=== PATIENT | female | born 1940 | race African-American/Black ===

== ENCOUNTER 2016-03-16 13:14 | Emergency (ER) | payer BC, MEDICAID, OTHER ==
[~2016-03-16] VITALS: Ht 165.1 cm; Wt 90.7 kg
[~2016-03-16 13:14] MED LIST: ARICEPT10 MG ORAL; ASPIRIN81 MG ORAL; BP MEDICATION; GABAPENTIN800 MG ORAL; JANUVIA100 MG ORAL; LANOXIN125 MCG ORAL; NEXIUM40 MG ORAL; PLAVIX75 MG ORAL; SOLOSTAR INSULIN
[2016-03-16 14:00] VITALS: BP 121/75
--- NOTE | 2016-03-16 14:42 | Emergency Room Report ---
History of Present Illness General Chief Complaint: Multiple Trauma/Fall Source: Patient Present Illness HPI 75 yo F here for multiple complaints. Patient is unhappy with her current PMD/ clinic. States she was there earlier today, had "to wait 90 minutes" and then they sent me home. Patient states she fell, hit head 1 week ago - went to [facility] - had CT that was "normal". She was discharged after ?obs in ED overnight because it sounds like she is on Plavix. However she hasnt taken plavix in weeks because she ran out. She has run out of a number of medications including for BP, but cant remember names/doses. She is still c/o headache to front of forehead from fall. Taking tylenol at home with some improvement. She is also c/o swollen bilateral legs for "a long time." Denies history of CHF. Denies chest pain, SOB. Allergies: Coded Allergies: PENICILLIN G (Verified Allergy, Itching, 12/06/12) SULFA (SULFONAMIDE ANTIBIOTICS) (Verified Allergy, Itching, 12/06/12) gagging Patient History Past Medical History: HTN, CVA/TIA Past Surgical History: unable to obtain Pertinent Family History: unable to obtain Social History: Denies: alcohol use, drug use, smoking Immunizations: UTD Reviewed Nursing Documentation: PMH: Agreed, PSxH: Agreed Nursing Documentation-PMH Hx Cardiac Problems: Yes - glaucoma rheumatoid arthritis Hx Hypertension: Yes Hx Diabetes: Yes - neuropathy DVT Hx Cancer: No Hx Gastrointestinal Problems: Yes - gastritis Hx Neurological Problems: Yes - peripheral neuropathy Hx Cerebrovascular Accident: Yes - 2005; left sided weakness Review of Systems All Other Systems: negative except mentioned in HPI Physical Exam Vital Signs Date Time Temp Pulse Resp B/P Pulse Ox O2 Delivery O2 Flow Rate FiO2 03/16/16 13:40 98.2 80 16 121/72 95 Room Air Sp02 EP Interpretation: reviewed, normal General Appearance: normal inspection, well appearing, no apparent distress, alert, GCS 15, non-toxic Head: normocephalic, other - Chronic abrasion to forehead, no lac or active bleeding. No hematoma Eyes: bilateral eye EOMI, bilateral eye PERRL ENT: normal ENT inspection, hearing grossly normal, normal voice Neck: normal inspection, full range of motion, supple, no bony tend Respiratory: normal inspection, lungs clear, normal breath sounds, no respiratory distress, no retraction, no wheezing Cardiovascular #1: normal peripheral pulses, regular rate, rhythm, no edema Gastrointestinal: normal inspection, normal bowel sounds, non tender, soft, no guarding, no hernia Genitourinary: no CVA tenderness Musculoskeletal: normal inspection, back normal, normal range of motion, William' s Sign negative, other - non-pitting edema bilateral lower extremities Neurologic: normal inspection, alert, oriented x3, responsive, microsoft dynamics ax developer III-XII nml as tested, motor strength/tone normal, speech normal Psychiatric: normal inspection, judgement/insight normal, mood/affect normal Skin: normal inspection, normal color, no rash Medical Decision Making Diagnostic Impression: Primary Impression: Head contusion Qualified Codes: S00.03XS - Contusion of scalp, sequela Additional Impressions: Swelling of extremity, left Swelling of extremity, right Medication refill ER Course Head contusion [address] head was negative at outside hospital. Non compliant with Plavix anyway. VSS here. No focal neuro deficits Basic labs done. No JANELLE, no leuks. H&H stable. Likely lymphadema, chronic. No clinical or laboratory sign of peripheral heart failure. ECG is NSR, no ischemia Analgesia given for headache Patient took bus to ED. Is ambulating at baseline out of here. Has PMD appt tomorrow Given copy of labs Advised to ask for Neuro followup for continued headaches to eval for concussion EKG Diagnostic Results Rate: normal Rhythm: NSR ST Segments: no acute changes ASA given to the pt in ED: No Rhythm Strip Diag. Results EP Interpretation: yes Rate: 63 Rhythm: NSR, no PVC's, no ectopy Last Vital Signs Date Time Temp Pulse Resp B/P Pulse Ox O2 Delivery O2 Flow Rate FiO2 03/16/16 14:00 98.2 75 16 121/75 95 Room Air Status: improved Disposition: HOME, SELF-CARE Scripts Clopidogrel Bisulfate* (PLAVIX*) 75 Mg Tablet 75 MG ORAL DAILY for 30 Days, #30 TAB Prov: ISAAC MANRIQUEZ M.D. 03/16/16 ISAAC MANRIQUEZ M.D. Mar 16, 2016 14:42
[2016-03-16 14:57] LABS: BASOPHILS % (AUTO) 1.5 % (0.0-2.0); EOSINOPHILS % (AUTO) 1.6 % (0.0-3.0); LYMPHOCYTES % (AUTO) 37.4 % (20.0-45.0); MEAN CORPUSCULAR HEMOGLOBIN 29.2 PG (27.0-31.0); MEAN CORPUSCULAR HGB CONC 32.1 G/DL (32.0-36.0); MEAN CORPUSCULAR VOLUME 91 FL (80-99); MEAN PLATELET VOLUME 7.7 FL (6.5-10.1); MONOCYTES % (AUTO) 7.3 % (1.0-10.0); NEUTROPHILS % (AUTO) 52.2 % (45.0-75.0); PLATELET COUNT 156 K/UL (150-450); RED BLOOD COUNT 4.29 M/UL (4.20-5.40); RED CELL DISTRIBUTION WIDTH 13.6 % (11.6-14.8); WHITE BLOOD COUNT 5.8 K/UL (4.8-10.8)
[2016-03-16 15:28] LABS: ALANINE AMINOTRANSFERASE 11 U/L (3-33); ALBUMIN/GLOBULIN RATIO 1.3 (1.0-2.7); ANION GAP 11 (5-15); ASPARTATE AMINO TRANSFERASE 17 U/L (5-40); CALCIUM 9.6 mg/dL (8.6-10.2); CARBON DIOXIDE 29 mEQ/L (20-30); CHLORIDE 98 mEQ/L (98-107); CREATININE 0.9 mg/dL (0.5-0.9); HEMOLYSIS 14; POTASSIUM 4.6 mEQ/L (3.4-4.9); SODIUM 138 mEQ/L (135-145); TOTAL PROTEIN 6.9 g/dL (6.6-8.7)
[2016-03-16] MEDS ORDERED: PLAVIX75 MG ORAL (15:39)
[2016-03-16 16:30] VITALS: BP 123/73
[2016-03-16 16:52] VITALS: BP 121/75
--- NOTE | 2016-03-17 14:18 | Cardiology Report ---
APPROVED REPORT EKG Measurement Heart [id number] DC 124P61 [id number] Normal sinus rhythm Normal ECG
== END 2016-03-16 17:00 | disposition home or self-care (01) ==
LOC: EMR 14:18
DX: S00.03XS Contusion of scalp, sequela (principal); M79.89 Other specified soft tissue disorders; Z76.0 Encounter for issue of repeat prescription; W19.XXXD Unspecified fall, subsequent encounter; Z79.02 Long term (current) use of antithrombotics/antiplatelets; Z88.0 Allergy status to penicillin; Z88.2 Allergy status to sulfonamides; I10 Essential (primary) hypertension; E11.9 Type 2 diabetes mellitus without complications; G81.94 Hemiplegia, unspecified affecting left nondominant side; Z87.19 Personal history of other diseases of the digestive system; M06.9 Rheumatoid arthritis, unspecified
CPT/HCPCS: 36415; 80053; 85025; 93005; 99283

== ENCOUNTER 2016-06-24 00:08 | Emergency (ER) | payer BC, MEDICARE ==
[~2016-06-24] VITALS: Ht 165.1 cm; Wt 90.7 kg
[2016-06-24 01:17] VITALS: BP 155/105
[2016-06-24 03:17] LABS: APPEARANCE,URINE CLEAR; KETONES,URINE NEGATIVE (NEGATIVE); LEUKOCYTE ESTERASE ,URINE 2+ (NEGATIVE); NITRITE,URINE NEGATIVE (NEGATIVE); PH,URINE 6.5 (4.5-8.0); PROTEIN,URINE NEGATIVE (NEGATIVE); UROBILINOGEN,URINE NORMAL MG/DL (0.0-1.0)
[2016-06-24 03:29] LABS: BACTERIA,URINE FEW /HPF; SQUAMOUS EPITHELIAL CELL,UR MODERATE /LPF (NONE/OCC)
[2016-06-24 03:30] LABS: YEAST,URINE FEW /HPF
[2016-06-24] MEDS ORDERED: PLAVIX75 MG ORAL (03:37)
[2016-06-24] MEDS ORDERED: NITROFURANTOIN100 M2 ORAL (03:37)
[2016-06-24] MEDS ORDERED: Fluconazole 100mg tab ORAL ONE (03:45)
[2016-06-24 03:46] VITALS: BP 155/105
--- NOTE | 2016-06-24 03:47 | Emergency Room Report ---
History of Present Illness General Chief Complaint: Pain Source: Patient Present Illness HPI 75YOF drove to ER - accompanied her friend to the ED and decided to "get checked out while I'm here." Patient states "in between physicians" and has multitude of complaints. 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 To me, she endorses that, plus left tooth pain, jaw pain, headache for months, chronic lower right back pain, urinary incontinence, and also medication refill and c/o drainage from left ear. I politely explained to patient that we are a very busy ER with limited resorces and staff and that a lot of these issues could be discussed with her PMD. See AP section... Allergies: Coded Allergies: PENICILLIN G (Verified Allergy, Itching, 12/06/12) SULFA (SULFONAMIDE ANTIBIOTICS) (Verified Allergy, Itching, 12/06/12) gagging Patient History Past Medical History: see triage record, old chart reviewed Past Surgical History: none Pertinent Family History: none Social History: Denies: alcohol use, drug use, smoking Now: No Immunizations: UTD Reviewed Nursing Documentation: PMH: Agreed, PSxH: Agreed Nursing Documentation-PMH Hx Cardiac Problems: Yes - glaucoma rheumatoid arthritis Hx Hypertension: Yes Hx Diabetes: Yes - neuropathy DVT Hx Cancer: No Hx Gastrointestinal Problems: Yes - gastritis Hx Neurological Problems: Yes - peripheral neuropathy Hx Cerebrovascular Accident: Yes - 2006; left sided weakness Review of Systems All Other Systems: negative except mentioned in HPI Physical Exam Vital Signs Date Time Temp Pulse Resp B/P Pulse Ox O2 Delivery O2 Flow Rate FiO2 06/24/16 00:19 98.2 58 21 98 Room Air 06/24/16 01:17 155/105 Sp02 EP Interpretation: reviewed, normal General Appearance: normal inspection, well appearing, no apparent distress, alert, GCS 15, non-toxic Head: normocephalic, atraumatic Eyes: bilateral eye EOMI, bilateral eye PERRL ENT: normal ENT inspection, hearing grossly normal, normal pharynx, no angioedema, normal voice, TMs + canals normal, uvula midline, moist mucus membranes Neck: normal inspection, full range of motion, supple, no bony tend Respiratory: normal inspection, lungs clear, normal breath sounds, no rhonchi, no respiratory distress, no retraction, no accessory muscle use, no wheezing, speaking full sentences Cardiovascular #1: regular rate, rhythm, no edema Gastrointestinal: normal inspection, normal bowel sounds, non tender, soft, no guarding, no hernia Genitourinary: no CVA tenderness Musculoskeletal: normal inspection, back normal, normal range of motion, William' s Sign negative, other - 1+ non pitting edema, in shiny hairless legs Neurologic: normal inspection, alert, responsive, asphalt smoother III-XII nml as tested, motor strength/tone normal, speech normal Psychiatric: normal inspection, judgement/insight normal, mood/affect normal Skin: normal inspection, normal color, no rash Medical Decision Making Diagnostic Impression: Primary Impression: Medication refill Additional Impression: Urinary incontinence Qualified Codes: R32 - Unspecified urinary incontinence ER Course SOB - Lungs CTAB. No rhonchi or wheezing. Completely clear. Unlikely PNA, COPD/ asthma, or CHF Urinary incontinence -UA with yeast, ?UTI -Was given anti-fungal in the ED and RX for Macrobid Refills - Refilled Plavix as it is the one medication she knows the dose for - Advised PMD followup for her multitude of chronic medical problems Left ear drainage - Bilaeral TMs visualized, clear. No otitis media or externa - No TM rupture or fluid in canal Advised PMD followup Last Vital Signs Date Time Temp Pulse Resp B/P Pulse Ox O2 Delivery O2 Flow Rate FiO2 06/24/16 01:17 98.2 82 21 155/105 98 Room Air Status: improved Disposition: HOME, SELF-CARE Condition: Improved Scripts Nitrofurantoin Monohyd/M-Cryst* (MACROBID 100 MG*) 100 Mg Capsule 100 MG ORAL EVERY 12 HOURS for 7 Days, #14 CAP Prov: ISAAC MANRIQUEZ M.D. 06/24/16 Clopidogrel Bisulfate* (PLAVIX*) 75 Mg Tablet 75 MG ORAL DAILY, #30 TAB 0 Refills Prov: ISAAC MANRIQUEZ M.D. 06/24/16 Patient Instructions: Dysuria, Vaginal Yeast Infection, Adult Additional Instructions: - We treated you for a yeast infection in the ER. - Take ALL antibiotics as prescribed. - Take Plavix as prescribed - Please followup with a primary care doctor for refill of your other medications ISAAC MANRIQUEZ M.D. June 24, 2016 03:47
== END 2016-06-24 03:47 | disposition home or self-care (01) ==
LOC: EMR 00:50
DX: Z76.0 Encounter for issue of repeat prescription (principal); R32 Unspecified urinary incontinence; R06.02 Shortness of breath; I10 Essential (primary) hypertension; Z86.79 Personal history of other diseases of the circulatory system; H40.9 Unspecified glaucoma; M06.9 Rheumatoid arthritis, unspecified; E11.40 Type 2 diabetes mellitus with diabetic neuropathy, unspecified; I82.409 Acute embolism and thrombosis of unspecified deep veins of unspecified lower extremity; K29.70 Gastritis, unspecified, without bleeding; Z86.73 Personal history of transient ischemic attack (TIA), and cerebral infarction without residual deficits; R53.1 Weakness
CPT/HCPCS: 69210; 81003; 87086; 87181; 99284

== ENCOUNTER 2017-04-08 14:46 | Emergency (ER) | payer MEDICARE, OTHER ==
[~2017-04-08] VITALS: Ht 165.1 cm; Wt 81.6 kg
[~2017-04-08 14:46] MED LIST changes: +NITROFURANTOIN100 M2 ORAL
[2017-04-08 15:05] VITALS: BP 166/81
--- NOTE | 2017-04-08 15:53 | Emergency Room Report ---
History of Present Illness General Chief Complaint: General Complaint Source: Patient, Medical Record Present Illness HPI Patient is a 76-year-old female who presented after increased headache and low back pain. The patient had prior history of rheumatoid arthritis. Patient reports having multiple prior falls. She reports having increased generalized pain. She states that she has not been following with her primary care physician. Pain was worse in her back and lower extremity. The patient states that she also has neuropathy. She had reported lumbar disc disease Allergies: Coded Allergies: LATEX (Verified Allergy, Unknown, 04/08/17) PENICILLIN G (Verified Allergy, Unknown, Itching, 04/08/17) SULFA (SULFONAMIDE ANTIBIOTICS) (Verified Allergy, Unknown, Itching, ) gagging Patient History Past Medical History: see triage record Nursing Documentation-PM Past Medical History: No History, Except For Hx Cardiac Problems: Yes - glaucoma rheumatoid arthritis Hx Hypertension: Yes Hx Diabetes: Yes - neuropathy DVT Hx Cancer: No Hx Gastrointestinal Problems: Yes - gastritis Hx Neurological Problems: Yes - peripheral neuropathy Hx Cerebrovascular Accident: Yes - 2005; left sided weakness Review of Systems All Other Systems: negative except mentioned in HPI Physical Exam Vital Signs Date Time Temp Pulse Resp B/P (MAP) Pulse Ox O2 Delivery O2 Flow Rate FiO2 04/08/17 14:54 98.2 64 18 166/81 95 Room Air 98.2 Sp02 EP Interpretation: normal General Appearance: alert, GCS 15, non-toxic, Chronically Ill Neck: full range of motion, supple, thyroid normal Respiratory: lungs clear, normal breath sounds, no rhonchi Cardiovascular #1: normal peripheral pulses, regular rate, rhythm, no edema Gastrointestinal: normal inspection Musculoskeletal: decreased range of motion Neurologic: normal inspection, alert, oriented x3, responsive, head golf professional III-XII nml as tested Psychiatric: normal inspection, judgement/insight normal Skin: normal inspection, normal color Medical Decision Making Diagnostic Impression: Primary Impression: Chronic pain Additional Impression: Arthritis ER Course Patient presented after fall with multiple complaints. Differential diagnosis included was not limited to neck fracture, CVA, close head injury, syncopal episode, basilar ischemia. Because of complexity of patient's case laboratory testing and imaging studies were ordered. Because of complexity of patient's case laboratory testing and imaging studies were ordered.I laboratory studies were unremarkable. Patient noted have minimal urinary tract infection was given prescription for Macrobid. The patient's interestingly was contacted and they agreed to arrange home health nurse visits. The patient is advised to follow up with primary care doctor in 1-2 days. Patient is advised to return if any worsening condition or if any changes in status that are concerning. This report is dictated with [employer] flange turner software which may occasionally lead to discrepancies related to use of this software. Labs Test 04/08/17 16:04 04/08/17 17:17 White Blood Count 5.0 K/UL (4.8-10.8) Red Blood Count 4.79 M/UL (4.20-5.40) Hemoglobin 13.9 G/DL (12.0-16.0) Hematocrit 42.3 % (37.0-47.0) Mean Corpuscular Volume 88 FL (80-99) Mean Corpuscular Hemoglobin 29.1 PG (27.0-31.0) Mean Corpuscular Hemoglobin Concent 32.9 G/DL (32.0-36.0) Red Cell Distribution Width 12.8 % (11.6-14.8) Platelet Count 161 K/UL (150-450) Mean Platelet Volume 8.1 FL (6.5-10.1) Neutrophils (%) (Auto) 52.7 % (45.0-75.0) Lymphocytes (%) (Auto) 36.5 % (20.0-45.0) Monocytes (%) (Auto) 7.3 % (1.0-10.0) Eosinophils (%) (Auto) 2.5 % (0.0-3.0) Basophils (%) (Auto) 1.0 % (0.0-2.0) Sodium Level 137 MMOL/L (136-145) Potassium Level 4.2 MMOL/L (3.5-5.1) Chloride Level 100 MMOL/L (98-107) Carbon Dioxide Level 31 MMOL/L (21-32) Anion Gap 6 mmol/L (5-15) Blood Urea Nitrogen 19 mg/dL (7-18) Creatinine 0.9 MG/DL (0.55-1.30) Estimat Glomerular Filtration Rate mL/min (>60) Glucose Level 238 MG/DL (74-106) Calcium Level 9.3 MG/DL (8.5-10.1) Total Bilirubin 0.5 MG/DL (0.2-1.0) Aspartate Amino Transf (AST/SGOT) 20 U/L (15-37) Alanine Aminotransferase (ALT/SGPT) 22 U/L (12-78) Alkaline Phosphatase 145 U/L (46-116) Total Creatine Kinase 193 U/L (26-308) Troponin I 0.003 ng/mL (0.000-0.056) Total Protein 7.4 G/DL (6.4-8.2) Albumin 3.7 G/DL (3.4-5.0) Globulin 3.7 g/dL Albumin/Globulin Ratio 1.0 (1.0-2.7) Urine Color Pale yellow Urine Appearance Clear Urine pH 7 (4.5-8.0) Urine Specific [place] 1.010 (1.005-1.035) Urine Protein Negative (NEGATIVE) Urine Glucose (UA) 3+ (NEGATIVE) Urine Ketones Negative (NEGATIVE) Urine Occult Blood Negative (NEGATIVE) Urine Nitrite Negative (NEGATIVE) Urine Bilirubin Negative (NEGATIVE) Urine Urobilinogen Normal MG/DL (0.0-1.0) Urine Leukocyte Esterase 1+ (NEGATIVE) Urine RBC 0-2 /HPF (0 - 2) Urine WBC 2-4 /HPF (0 - 2) Urine Squamous Epithelial Cells Few /LPF (NONE/OCC) Urine Bacteria Few /HPF (NONE) Last Vital Signs Date Time Temp Pulse Resp B/P (MAP) Pulse Ox O2 Delivery O2 Flow Rate FiO2 04/08/17 15:05 98.2 18 166/81 95 Room Air 98.2 04/08/17 14:54 64 Status: improved Disposition: HOME, SELF-CARE Condition: Stable Scripts Nitrofurantoin Monohyd/M-Cryst* (MACROBID 100 MG*) 100 Mg Capsule 100 MG ORAL EVERY 12 HOURS, #10 CAP Prov: Martínez Zuleta 04/08/17 Lidocaine (Lidocaine) 1 Each Adh..patch 700 MG TP DAILY, #14 PATCH Prov: Martínez Zuleta 04/08/17 Martínez Zuleta Apr 08, 2017 15:53
--- NOTE | 2017-04-08 16:11 | Diagnostic Imaging Report ---
Indications: Pain, head trauma, status post fall Technique: Spiral acquisitions obtained through the brain. Angled axial and coronal 5 x 5 mm slices were reconstructed. Total dose length product 1330.34 mGycm. CTDI vol(s) 70.38 mGy. Dose reduction achieved using automated exposure control Comparison: None. Findings: Scanty sella incidentally noted. No acute intracranial hemorrhage or edema, mass effect or midline shift. There is mild age-related enlargement of the ventricles and extra-axial CSF spaces, minimal periventricular deep white matter low attenuation. Intact calvarium. Visualized orbits and sinuses are unremarkable. Impression: Minimal chronic and age-related changes, as described Negative for acute intracranial bleed or mass effect The CT scanner at [facility] is accredited by the [employer] [place] [employer] and the scans are performed using protocols designed to limit radiation exposure to as low as reasonably achievable to attain images of sufficient resolution adequate for diagnostic evaluation.
--- NOTE | 2017-04-08 16:21 | Diagnostic Imaging Report ---
Indication: Pain, shortness of breath, status post fall Technique: One view of the chest Comparison: none Findings: Patient is rotated the right. Lungs and pleural spaces are clear. The heart size is borderline enlarged. There are degenerative changes of the thoracic spine Impression: No acute process Borderline cardiomegaly
[2017-04-08 16:26] LABS: EOSINOPHILS % (AUTO) 2.5 % (0.0-3.0); HEMATOCRIT 42.3 % (37.0-47.0); HEMOGLOBIN 13.9 G/DL (12.0-16.0); LYMPHOCYTES % (AUTO) 36.5 % (20.0-45.0); MEAN CORPUSCULAR VOLUME 88 FL (80-99); MONOCYTES % (AUTO) 7.3 % (1.0-10.0); NEUTROPHILS % (AUTO) 52.7 % (45.0-75.0); PLATELET COUNT 161 K/UL (150-450); RED BLOOD COUNT 4.79 M/UL (4.20-5.40); RED CELL DISTRIBUTION WIDTH 12.8 % (11.6-14.8)
--- NOTE | 2017-04-08 16:30 | Diagnostic Imaging Report ---
Indications: Pain, status post fall Technique: Spiral acquisitions obtained through the lumbar spine. Multiplanar reconstructions were generated. No IV contrast utilized. Total dose length product 1238.05 mGycm. CTDIvol(s) 48.72 mGy. Dose reduction achieved using automated exposure control Comparison: none Findings: There is very slight anterior offset of L3 on L4 and of L4 on L5, presumably related to facet degeneration. Otherwise normal bony alignment. Vertebral body heights are preserved. There is minimal central superior endplate depression of L3 and L4, probably on the basis of broad-based intravertebral endplate disc herniations. No acute fractures. At L1-2, there are large left lateral osteophytes and bilateral facet arthrosis. The disc spaces preserved.. No significant disc bulge or protrusion. No significant spinal stenosis or neural foraminal stenosis. At L2-3, the disc space is preserved. There is vacuum formation. There is generalized circumferential annular bulge, with protrusion of the disc 3 mm posterior to the posterior margins of the vertebral body. This does not result in significant spinal stenosis. No significant neural foraminal stenosis is demonstrated. There is mild facet arthrosis on the left. At L3-4, the disc space is preserved. There is mild circumferential annular bulge which does not significantly compromise the spinal canal or neural foramina. There is bilateral facet arthrosis with considerable proliferative change. At L4-5, there is vacuum formation. The disc spaces preserved. No significant disc bulge or protrusion. There may be slight compromise of the right neural foramen due to the alignment abnormality. There is bilateral facet arthrosis. At L5-S1, there is mild circumferential annular bulge. This does not significantly compromise the spinal canal or neural foramina. There is disc space is preserved, although there is vacuum formation. The included extra spinal soft tissues are unremarkable for the presence of cholecystectomy clips. The extrahepatic bile ducts are somewhat dilated. There is a right renal cyst. Impression: No acute bony trauma Degenerative changes, as detailed on a level by level basis above. Incidental finding of cholecystectomy. Prominent extrahepatic bile ducts are likely related age and postcholecystectomy state Incidental finding right renal cyst The CT scanner at [facility] is accredited by the [employer] and the scans are performed using protocols designed to limit radiation exposure to as low as reasonably achievable to attain images of sufficient resolution adequate for diagnostic evaluation.
[2017-04-08 16:49] LABS: ANION GAP 6 mmol/L (5-15); BLOOD UREA NITROGEN 19 mg/dL (7-18); CALCIUM 9.3 MG/DL (8.5-10.1); CARBON DIOXIDE 31 MMOL/L (21-32); CHLORIDE 100 MMOL/L (98-107); CREATININE 0.9 MG/DL (0.55-1.30); POTASSIUM 4.2 MMOL/L (3.5-5.1); SODIUM 137 MMOL/L (136-145)
[2017-04-08 16:53] LABS: ALANINE AMINOTRANSFERASE 22 U/L (12-78); ALBUMIN 3.7 G/DL (3.4-5.0); ALKALINE PHOSPHATASE 145 U/L (46-116); ASPARTATE AMINO TRANSFERASE 20 U/L (15-37); BILIRUBIN,TOTAL 0.5 MG/DL (0.2-1.0); CREATINE KINASE 193 U/L (26-308)
[2017-04-08] MEDS ORDERED: Acetaminophen 500mg (ES) tab ORAL ONE (17:00)
[2017-04-08] MEDS ORDERED: LIDOCAINE700 M1 TP (18:00)
[2017-04-08] MEDS ORDERED: NITROFURANTOIN100 M2 ORAL (18:00)
[2017-04-08 18:08] LABS: APPEARANCE,URINE CLEAR; BILIRUBIN, URINE NEGATIVE (NEGATIVE); COLOR,URINE PALE YELLOW; GLUCOSE, URINE (UA) 3+ (NEGATIVE); KETONES,URINE NEGATIVE (NEGATIVE); LEUKOCYTE ESTERASE ,URINE 1+ (NEGATIVE); NITRITE,URINE NEGATIVE (NEGATIVE); PH,URINE 7 (4.5-8.0); PROTEIN,URINE NEGATIVE (NEGATIVE); UROBILINOGEN,URINE NORMAL MG/DL (0.0-1.0)
[2017-04-08 18:37] VITALS: BP 165/82
[2017-04-08 22:09] VITALS: BP 160/79
--- NOTE | 2017-04-10 16:28 | Cardiology Report ---
APPROVED REPORT EKG Measurement Heart [id number] AK 130P53 [id number] Sinus rhythm with blocked premature atrial complexes Left axis deviation Nonspecific ST and T wave abnormality Abnormal ECG
== END 2017-04-08 22:10 | disposition home or self-care (01) ==
LOC: EMR 15:40 → CANBEDREQ 18:34 → EMR 22:10
DX: R51 Headache (principal); M54.5 Low back pain; G89.29 Other chronic pain; Z88.0 Allergy status to penicillin; Z88.2 Allergy status to sulfonamides; Z91.040 Latex allergy status; I10 Essential (primary) hypertension; E11.40 Type 2 diabetes mellitus with diabetic neuropathy, unspecified; I69.354 Hemiplegia and hemiparesis following cerebral infarction affecting left non-dominant side; M06.9 Rheumatoid arthritis, unspecified; H40.9 Unspecified glaucoma; N28.1 Cyst of kidney, acquired; Z90.49 Acquired absence of other specified parts of digestive tract
CPT/HCPCS: 36415; 70450; 71045; 72131; 80053; 81003; 82550; 84484; 85025; 93005; 96374; 96375; 99284; J2405

== ENCOUNTER 2020-04-10 17:35 | Emergency (ER) | payer OTHER ==
[~2020-04-10] VITALS: Ht 162.6 cm; Wt 81.6 kg
[~2020-04-10 17:35] MED LIST changes: +LIDOCAINE700 M1 TP
--- NOTE | 2020-04-10 18:35 | NUR ---
pt states pain in head (states full of mucus), pt states unsteady since 2020. pt states she has not been taking dm medication for 4 weeks, januvia 100mg once a day. pt pmh: dm, htn, copd, asthma, arthritis, stroke 2005. pt states joint/bone pain. pt states nerve pain. pt denies cough/fever. pt states feeling anxious and wants everything looked at.
--- NOTE | 2020-04-10 19:05 | NUR ---
Patient arrived to ER via ambulatory c/o pain in the legs and the back , also patient refers she is no taking her medications. New orders received from EDP and carried out. All procedures were explain to the patient . Patient verbalized understanding. . Safety and comfort measures taken: bed set in low position, frequent rounds, call light within reach. Will continue monitoring the patient during the sift.
--- NOTE | 2020-04-10 19:16 | Emergency Room Report ---
History of Present Illness General Chief Complaint: Pain Source: Patient (Martínez Zuleta MD) Present Illness HPI Patient is a 79-year-old female who presents for increased headache and generalized body pains. Patient reportedly had been unable to obtain her medications from her doctor and been off of her Januvia for approximately 4 weeks. Reports having prior history of rheumatoid arthritis and neuropathy. Reports of increased pain to her right knee. Patient had reported recent fall approximately 2 weeks ago. States she fell off of a bed. Has been having worsening pain since then. Patient had been able to ambulate after the fall. Prior history of chronic joint pain from rheumatoid arthritis. (Martínez Zuleta MD) Allergies: Coded Allergies: LATEX (Verified Allergy, Unknown, 04/08/17) PENICILLIN G (Verified Allergy, Unknown, Itching, 04/08/17) SULFA (SULFONAMIDE ANTIBIOTICS) (Verified Allergy, Unknown, Itching, 04/08/17) gagging COVID-19 Screening Contact w/high risk pt: No Experienced COVID-19 symptoms?: No COVID-19 Testing performed WEB MARKETING SPECIALIST: No (Martínez Zuleta MD) Patient History Past Medical History: see triage record Reviewed Nursing Documentation: PMH: Agreed; PSxH: Agreed (Martínez Zuleta MD) Nursing Documentation-PMH Past Medical History: No History, Except For Hx Cardiac Problems: No Hx Hypertension: Yes Hx Pacemaker: No Hx Asthma: Yes Hx COPD: Yes Hx Diabetes: Yes Hx Cancer: No Hx Gastrointestinal Problems: Yes - ulcer Hx Dialysis: No History Of Psychiatric Problem: No Hx Neurological Problems: No Hx Cerebrovascular Accident: Yes - 2005 Hx Seizures: No (Martínze Zuleta MD) Physical Exam Vital Signs Date Time Temp Pulse Resp B/P (MAP) Pulse Ox O2 Delivery O2 Flow Rate FiO2 04/10/20 18:24 98.6 83 18 124/56 (78) 98 Room Air Sp02 EP Interpretation: reviewed, normal General Appearance: alert, Chronically Ill Head: atraumatic ENT: normal ENT inspection, normal voice Neck: normal inspection, supple, no bony tend, limited range of motion Respiratory: normal inspection, lungs clear, normal breath sounds, no respiratory distress, no retraction, no wheezing Cardiovascular #1: regular rate, rhythm, edema - right knee edema Gastrointestinal: normal inspection, normal bowel sounds, non tender, soft, no guarding, no hernia Genitourinary: no CVA tenderness Musculoskeletal: decreased range of motion, other - right knee swelling Neurologic: alert, oriented x3, responsive, speech normal, normal inspection Psychiatric: normal inspection, judgement/insight normal, mood/affect normal Skin: no rash (Martínez Zuleta MD) Medical Decision Making Diagnostic Impression: Primary Impression: Generalized weakness Additional Impressions: Hyperglycemia Cervical spine arthritis Urinary tract infection Qualified Codes: N30.00 - Acute cystitis without hematuria CHF exacerbation Qualified Codes: I50.9 - Heart failure, unspecified ER Course Patient presents for increased generalized weakness and some body aches. Differential diagnosis include was not limited to hyperglycemia, electrolyte abnormality, urinary tract infection, coronavirus infection among others. Because of complexity of patient's case laboratory tests and imaging studies were ordered. Patient reportedly had recent trauma. CT imaging of the head read by radiology showed. Patient's laboratory testing showed some hyperglycemia as well as some evidence of urinary tract infection. Patient is able to ambulate with wheelchair. Does appear to have some pain to the right knee which reportedly is more swollen than usual. Chest x-ray read by radiology showed bilateral vascular congestion with left side greater than right side. CT of the head showed some chronic mastoid changes from prior surgery. No evidence of acute intracranial hemorrhage. CT imaging showed large right-sided thyroid nodule approximately 1.5 cm as well he multilevel degenerative changes see radiology report for full details. Patient appears to have some increased respiratory illness associate with some body aches. Patient will be hospitalized for further management of worsening pain and further evaluation of increased subjective fever. Patient was endorsed to Dr. Shea pending final disposition. Labs Test 04/10/20 19:20 White Blood Count 5.6 K/UL (4.8-10.8) Red Blood Count 4.51 M/UL (4.20-5.40) Hemoglobin 13.0 G/DL (12.0-16.0) Hematocrit 41.2 % (37.0-47.0) Mean Corpuscular Volume 91 FL (80-99) Mean Corpuscular Hemoglobin 28.8 PG (27.0-31.0) Mean Corpuscular Hemoglobin Concent 31.5 G/DL (32.0-36.0) Red Cell Distribution Width 15.2 % (11.6-14.8) Platelet Count 192 K/UL (150-450) Mean Platelet Volume 7.6 FL (6.5-10.1) Neutrophils (%) (Auto) 55.4 % (45.0-75.0) Lymphocytes (%) (Auto) 35.3 % (20.0-45.0) Monocytes (%) (Auto) 6.3 % (1.0-10.0) Eosinophils (%) (Auto) 2.0 % (0.0-3.0) Basophils (%) (Auto) 1.0 % (0.0-2.0) Prothrombin Time 10.7 SEC (9.30-11.50) Prothromb Time International Ratio 1.0 (0.9-1.1) Activated Partial Thromboplast Time 26 SEC (23-33) Urine Color Pale yellow Urine Appearance Clear Urine pH 6 (4.5-8.0) Urine Specific [place] 1.015 (1.005-1.035) Urine Protein Negative (NEGATIVE) Urine Glucose (UA) 4+ (NEGATIVE) Urine Ketones Negative (NEGATIVE) Urine Blood Negative (NEGATIVE) Urine Nitrite Negative (NEGATIVE) Urine Bilirubin Negative (NEGATIVE) Urine Urobilinogen Normal MG/DL (0.0-1.0) Urine Leukocyte Esterase 2+ (NEGATIVE) Urine RBC 0-2 /HPF (0 - 2) Urine WBC 2-4 /HPF (0 - 2) Urine Squamous Epithelial Cells Few /LPF (NONE/OCC) Urine Bacteria Few /HPF (NONE) Sodium Level 143 MMOL/L (136-145) Potassium Level 4.5 MMOL/L (3.5-5.1) Chloride Level 103 MMOL/L (98-107) Carbon Dioxide Level 33 MMOL/L (21-32) Anion Gap 7 mmol/L (5-15) Blood Urea Nitrogen 23 mg/dL (7-18) Creatinine 1.0 MG/DL (0.55-1.30) Estimat Glomerular Filtration Rate > 60 mL/min (>60) Glucose Level 225 MG/DL (74-106) Calcium Level 9.4 MG/DL (8.5-10.1) Total Bilirubin 0.4 MG/DL (0.2-1.0) Aspartate Amino Transf (AST/SGOT) 15 U/L (15-37) Alanine Aminotransferase (ALT/SGPT) 16 U/L (12-78) Alkaline Phosphatase 139 U/L (46-116) Troponin I 0.009 ng/mL (0.000-0.056) C-Reactive Protein, Quantitative < 0.4 mg/dL (0.00-0.90) Pro-B-Type Natriuretic Peptide 605 pg/mL (0-125) Total Protein 8.1 G/DL (6.4-8.2) Albumin 3.7 G/DL (3.4-5.0) Globulin 4.4 g/dL Albumin/Globulin Ratio 0.8 (1.0-2.7) Thyroid Stimulating Hormone (TSH) 2.184 uiU/mL (0.358-3.740) (Martínez Zuleta MD) ER Course This patient was signed out to me. She presents with generalized weakness and pain. Laboratory is unremarkable except for mild elevation of BNP. She is not hypoxic or dyspneic. She was scheduled to be transferred but she refused. She says she does not want to be transferred. She says she felt better after couple of hours here in the ER and got up and walked out of the hospital after going to the bathroom. I did discuss the transfer process with accepting Dr. (Rob Shea MD) Last Vital Signs Date Time Temp Pulse Resp B/P (MAP) Pulse Ox O2 Delivery O2 Flow Rate FiO2 04/10/20 18:24 98.6 83 18 124/56 (78) 98 Room Air Status: improved (Martínez Zuleta MD) Status: improved (Rob Shea MD) Disposition: AGAINST MEDICAL ADVICE Condition: Stable Martínez Zuleta MD Apr 10, 2020 19:16 Rob Shea MD Apr 11, 2020 00:32
[2020-04-10] MEDS ORDERED: Acetaminophen 500mg (ES) tab ORAL ONE (19:30)
[2020-04-10 19:49] LABS: APPEARANCE,URINE CLEAR; BILIRUBIN, URINE NEGATIVE (NEGATIVE); COLOR,URINE PALE YELLOW; GLUCOSE, URINE (UA) 4+ (NEGATIVE); KETONES,URINE NEGATIVE (NEGATIVE); LEUKOCYTE ESTERASE ,URINE 2+ (NEGATIVE); NITRITE,URINE NEGATIVE (NEGATIVE); PH,URINE 6 (4.5-8.0); PROTEIN,URINE NEGATIVE (NEGATIVE); UROBILINOGEN,URINE NORMAL MG/DL (0.0-1.0)
[2020-04-10 19:50] LABS: HEMATOCRIT 41.2 % (37.0-47.0); LYMPHOCYTES % (AUTO) 35.3 % (20.0-45.0); MEAN CORPUSCULAR VOLUME 91 FL (80-99); MONOCYTES % (AUTO) 6.3 % (1.0-10.0); NEUTROPHILS % (AUTO) 55.4 % (45.0-75.0); PLATELET COUNT 192 K/UL (150-450); RED BLOOD COUNT 4.51 M/UL (4.20-5.40); RED CELL DISTRIBUTION WIDTH 15.2 % (11.6-14.8); WHITE BLOOD COUNT 5.6 K/UL (4.8-10.8)
[2020-04-10 20:04] LABS: ANION GAP 7 mmol/L (5-15); BLOOD UREA NITROGEN 23 mg/dL (7-18); CALCIUM 9.4 MG/DL (8.5-10.1); CARBON DIOXIDE 33 MMOL/L (21-32); CHLORIDE 103 MMOL/L (98-107); POTASSIUM 4.5 MMOL/L (3.5-5.1); SODIUM 143 MMOL/L (136-145)
--- NOTE | 2020-04-10 20:10 | Diagnostic Imaging Report ---
EXAM: CT Head Without Intravenous Contrast CLINICAL HISTORY: FALL TECHNIQUE: Axial computed tomography images of the head/brain without intravenous contrast. CTDI is 53.4 mGy and DLP is 960.5 mGy-cm. One or more of the following dose reduction techniques were used: automated exposure control, adjustment of the mA and/or kV according to patient size, use of iterative reconstruction technique. COMPARISON: 04/08/2017 FINDINGS: Brain: Unremarkable. No hemorrhage. No significant white matter disease. No edema. Ventricles: Unremarkable. No ventriculomegaly. Bones/joints: Unremarkable. No acute fracture. Soft tissues: Unremarkable. Sinuses: Unremarkable as visualized. No acute sinusitis. Mastoid air cells: Left mastoid air cell effusion. IMPRESSION: 1. No acute intracranial abnormality. 2. Left mastoid air cell effusion.
--- NOTE | 2020-04-10 20:14 | Diagnostic Imaging Report ---
EXAM: CT Cervical Spine Without Intravenous Contrast CLINICAL HISTORY: FALL TECHNIQUE: Axial computed tomography images of the cervical spine without intravenous contrast. CTDI is 30.4 mGy and DLP is 672.5 mGy-cm. One or more of the following dose reduction techniques were used: automated exposure control, adjustment of the mA and/or kV according to patient size, use of iterative reconstruction technique. Coronal and sagittal reformatted images were created and reviewed. Axial reformatted images were created and reviewed. COMPARISON: No relevant prior studies available. FINDINGS: Vertebrae: Transverse C1 ligament calcification could be due to osteoarthritis, although rheumatoid arthritis or hyperparathyroidism can cause this appearance as well. No acute fracture. Discs/spinal canal/neural foramina: Osteopenia and multilevel age- related degenerative spine findings limit evaluation for small and nondisplaced fractures. No spinal canal stenosis. Soft tissues: Unremarkable. Mastoid air cells: Left mastoid air cell effusion. Thyroid: Consider outpatient thyroid ultrasound to further characterize partially calcified right lobe, 1.3 cm nodule. Lung apices: Right apical subpleural bleb. Other findings: No acute traumatic osseous injury identified. IMPRESSION: 1. Osteopenia and multilevel age-related degenerative spine findings limit evaluation for small and nondisplaced fractures. 2. No acute traumatic osseous injury identified. 3. If there is continued concern for occult fracture, recommend MRI. 4. Transverse C1 ligament calcification could be due to osteoarthritis, although rheumatoid arthritis or hyperparathyroidism can cause this appearance as well. 5. Left mastoid air cell effusion. 6. Consider outpatient thyroid ultrasound to further characterize partially calcified right lobe, 1.3 cm nodule.
[2020-04-10 20:19] LABS: ALANINE AMINOTRANSFERASE 16 U/L (12-78); ALBUMIN 3.7 G/DL (3.4-5.0); ALBUMIN/GLOBULIN RATIO 0.8 (1.0-2.7); ALKALINE PHOSPHATASE 139 U/L (46-116); ASPARTATE AMINO TRANSFERASE 15 U/L (15-37); BILIRUBIN,TOTAL 0.4 MG/DL (0.2-1.0)
[2020-04-10] MEDS ORDERED: Morphine Sulfate 2mg/ml Inj(IV/IM USE ONLY) IVP ONE (20:45)
[2020-04-10] MEDS ORDERED: Diclofenac 1% Gel 100gm TOPIC ONE (21:00)
[2020-04-10 22:00] VITALS: BP 124/56
--- NOTE | 2020-04-10 22:11 | NUR ---
Pain medication was effective , patient is in bed quite and relax . No pain or discomfort verbalized .
[2020-04-10 22:30] VITALS: BP 124/56
--- NOTE | 2020-04-10 23:59 | NUR ---
Pte left the hospital AMA , pte just left with the IV in her arm , we tried to take off before patiet left but pte refused to being touch. We called the police waiting for them to come.
--- NOTE | 2020-04-11 09:50 | Diagnostic Imaging Report ---
Procedure: XRAY Chest 1v Reason for study: Reason For Exam: SOB Comparison films: 04/08/2020. FINDINGS: A single one view chest is obtained. Vascularity is normal. The lung roy are clear bilaterally. Cardiac and mediastinal silhouette are within normal limits. CP angles are sharp. The bony thorax appear unremarkable. IMPRESSION: NO ACUTE CARDIOPULMONARY DISEASE.
== END 2020-04-10 23:00 | disposition left against medical advice (07) ==
LOC: EMR 19:25 → EDBEDREQ 20:43 → EMR 23:00 → CANBEDREQ 04-11 00:24
DX: R53.1 Weakness (principal); I50.9 Heart failure, unspecified; N30.00 Acute cystitis without hematuria; M47.812 Spondylosis without myelopathy or radiculopathy, cervical region; E11.65 Type 2 diabetes mellitus with hyperglycemia; J44.9 Chronic obstructive pulmonary disease, unspecified; J45.909 Unspecified asthma, uncomplicated; I10 Essential (primary) hypertension; Z86.73 Personal history of transient ischemic attack (TIA), and cerebral infarction without residual deficits; Z88.2 Allergy status to sulfonamides; Z88.0 Allergy status to penicillin; Z91.040 Latex allergy status; Z91.81 History of falling; Z53.29 Procedure and treatment not carried out because of patient's decision for other reasons
CPT/HCPCS: 36415; 70450; 71045; 72125; 80053; 81001; 83880; 84443; 84484; 85025; 85610; 85730; 86140; 93005; 96374; 96375; 99284; J1956; J2270